=== PATIENT | male | born 1990 | race Caucasian/White ===

== ENCOUNTER 2019-08-07 13:22 | Emergency (ER) | payer MEDICAID ==
[~2019-08-07] VITALS: Ht 180.3 cm; Wt 68.0 kg
[2019-08-07 13:25] VITALS: BP 140/87
--- NOTE | 2019-08-07 14:24 | NUR ---
[facility] to report incident. Case # [id number]
[2019-08-07] MEDS ORDERED: CEPH250T PO (14:35)
== END 2019-08-07 14:45 | disposition home or self-care (01) ==
LOC: ER 13:22
DX: S01.511A Laceration without foreign body of lip, initial encounter (principal); Y04.0XXA Assault by unarmed brawl or fight, initial encounter; Y93.89 Activity, other specified; Y92.89 Other specified places as the place of occurrence of the external cause; Y99.9 Unspecified external cause status
CPT/HCPCS: 99283

== ENCOUNTER 2020-01-17 12:09 | Emergency (ER) | payer MEDICAID ==
[~2020-01-17] VITALS: Ht 180.3 cm; Wt 79.5 kg
[2020-01-17 12:59] LABS: CLARITY,URINE SLIGHTLY CLOUDY (Clear); COLOR,URINE YELLOW (Yellow); GLUCOSE, URINE NEGATIVE (Neg); KETONES,URINE NEGATIVE (Neg); LEUKOCYTE ESTERASE ,URINE MODERATE (Neg); NITRITES, URINE NEGATIVE (Neg); OCCULT BLOOD,URINE TRACE-INTACT (Neg); PROTEIN,URINE NEGATIVE (Neg); UROBILINOGEN,URINE 0.2 E.U/dL (0.2-1.0)
[2020-01-17 13:04] LABS: UA COLLECTION TYPE VOIDED
[2020-01-17 13:06] LABS: WBC,URINE TNTC /HPF (0-4)
[2020-01-17 13:07] LABS: BACTERIA,URINE FEW /HPF (Neg)
[2020-01-17 13:09] LABS: MUCUS STRANDS NONE SEEN /LPF (Neg); SQUAMOUS EPITHELIAL CELL,UR NONE SEEN /LPF (FEW)
[2020-01-17] MEDS ORDERED: azithromycin 250mg tablet PO ONE (14:40)
[2020-01-17] MEDS ORDERED: CefTRIAXone 250MG IM Kit w/LIDOcaine IM ONE (14:40)
[2020-01-17] MEDS ORDERED: SULF1TAB49 PO (14:53)
[2020-01-17 15:27] VITALS: BP 114/65
== END 2020-01-17 15:29 | disposition home or self-care (01) ==
LOC: ER 12:10
DX: N34.2 Other urethritis (principal); Z79.899 Other long term (current) drug therapy
CPT/HCPCS: 36415; 81001; 87088; 87491; 87591; 96372; 99283; J0696; 87077; 87185